=== PATIENT | female | born 1970 | race Caucasian/White ===

== ENCOUNTER 2019-05-14 08:26 | Outpatient (CLI) | payer OTHER ==
[2019-05-14] MEDS ORDERED: Gadobenate Dimeglumine 529 MG/1 ML (20ML VIAL) ONE ×2 (09:41→09:42)
--- NOTE | 2019-05-14 10:16 | MRI ---
EXAM: MRI of the brain without and with contrast HISTORY: Multiple sclerosis COMPARISON: None TECHNIQUE: Multiplanar multisequence MR images were obtained of the brain without and with IV contras t. FINDINGS: The brain demonstrates normal signal intensity on all obtained sequences. No significant abnormal FLA IR foci are seen in the white matter or brachium pontis. No restricted diffusion. No abnormal enhancement. No hydronephrosis. No extra-axial fluid collection or intracranial hemorrhage. The expected flow voids are present. Corpus callosum, pituitary, and craniocervical junction are within normal limits. The calvarium and overlying soft tissues are unremarkable. The mastoid air cells are well aerated. Mild mucosal thickening is seen in the paranasal sinuses. IMPRESSION: No MR evidence for multiple sclerosis. This was reviewed with Dr. Carter who agrees with the findings an d impression.
--- NOTE | 2019-05-14 10:36 | MRI ---
MRI Cervical spine with and without contrast: HISTORY: Multiple sclerosis. Baseline MRI examination. COMPARISON: None FINDINGS: The craniocervical junction is unremarkable. No signal abnormality is seen within the spinal cord. No abnormal areas of enhancement are seen after the administration of intravenous contrast. Paravertebral soft tissues have a normal appearance and normal signal intensity. C1-2:No significant stenosis. C2-3: There is no disc bulge or disc herniation. The central spinal canal and neural foramina are pat ent. C3-4: There is mild disc osteophyte complex and uncinate process hypertrophy. This narrows the ventra l subarachnoid space with resultant mild mild right and mild/moderate left-sided neural foraminal narrowing. Mild effacement of ventral subarachnoid space is present. C4-5: Mild disc osteophyte complex and uncinate process hypertrophy. Generalized mild narrowing of th e central spinal canal with effacement of the ventral subarachnoid space. There is moderate left and moderate to severe right-sided neural foraminal narrowing. C5-6: There is loss of intervertebral disc height. There is broad-based disc osteophyte complex with uncinate process hypertrophy. There is narrowing of the central spinal canal. There is flattening of the anterior aspect of the spinal cord, but normal signal intensity is present in the spinal cord at this level. Moderate bilateral neural foraminal narrowing is present. C6-7: There is loss of intervertebral disc height. Disc osteophyte complex is present. Mild to modera te bilateral neural foraminal narrowing is present. There is generalized narrowing of the central spinal canal. There is mild flattening the anterior aspect of the spinal cord, normal signal intensit y is present in the spinal cord at this level. C7-T1: There is no disc bulge or disc herniation. The central spinal canal and neural foramina are pa tent IMPRESSION: 1. There is no cord signal abnormality seen on this examination to suggest a demyelinating process in volving the spinal cord. No abnormal areas of enhancement are seen after the administration of intravenous contrast. 2. Multilevel degenerative changes in the cervical spine.
== END 2019-05-14 08:27 | disposition home or self-care (01) ==
LOC: BICMRI 08:26
PROVIDERS: ATTEND Family Medicine
DX: G35 Multiple sclerosis (principal); M47.812 Spondylosis without myelopathy or radiculopathy, cervical region
CPT/HCPCS: 70553; 72156; 82565; A9577